=== PATIENT | male | born 1945 | race Caucasian/White ===

== ENCOUNTER 2024-12-23 09:32 | Inpatient (IN) | payer MEDICARE, OTHER ==
[~2024-12-23] VITALS: Ht 170.1 cm; Wt 83.5 kg
[~2024-12-23 09:32] MED LIST: B12 ACTIVE1000 MCG PO; CLOPIDOGREL75 MG PO; DIVALPROEX SOD500 MG PO; FENOFIBRATE160 MG PO; HYDROXYZINE PAM25 M1 PO; LIPITOR10 MG PO; MEMANTINE HCL10 MG PO; MIRALAX17 GM PO; MYRBETRIQ50 M1 PO; OXYBUTYNIN10 MG PO; PANTOPRAZOLE SO40 MG PO; PROSCAR5 M1 PO; RIVASTIGMINE1 EAC2 T; SENNA8.6 MG PO; SINEMET 25-1001 EACH PO; SYMB160 INH; TRICOR145 M1 PO; VAZALORE81 MG PO; VITAMIN D325 MCG PO
[2024-12-23] MEDS ORDERED: TYLENOL325 M2 PO (12:34)
[2024-12-23] MEDS ORDERED: Ipratropium Brom3 ML INH (12:36)
[2024-12-23] MEDS ORDERED: DEPAKOTE SPRIN125 MG PO ×2 (12:53)
[2024-12-23] MEDS ORDERED: LORazepam 1 MG TAB PO PRN (12:55)
[2024-12-23] MEDS ORDERED: hydrOXYzine hydrochloride 50 MG/ML VIAL IM PRN (12:55)
[2024-12-23] MEDS ORDERED: Ziprasidone Mesylate 20 MG VIAL IM PRN (13:00)
[2024-12-23] MEDS ORDERED: DIVALPROEX SODIUM 125 MG CAP PO SCH ×2 (13:00→21:00)
[2024-12-23 17:53] VITALS: BP 114/69
[2024-12-23] MEDS ORDERED: ELIQUIS5 M1 PO (17:53)
[2024-12-23 20:00] VITALS: BP 128/55
[2024-12-23] MEDS ORDERED: Memantine Hydrochloride 10 MG TAB PO SCH (21:00)
[2024-12-24 08:00] VITALS: BP 123/62
[2024-12-24] MEDS ORDERED: RIVASTIGMINE 13.3 MG/24 HR TDM T SCH (09:00)
[2024-12-24] MEDS ORDERED: ACETAMINOPHEN 325 MG TAB PO PRN (16:00)
[2024-12-24] MEDS ORDERED: Albuterol Sulf/Ipratropium 3 ML VIAL NEB PRN (16:00)
[2024-12-24] MEDS ORDERED: BUDESONIDE 0.5 MG AMP NEB SCH (16:05)
[2024-12-24] MEDS ORDERED: APIXABAN 5 MG TAB PO SCH (18:00)
[2024-12-24 20:00] VITALS: BP 114/62
[2024-12-24] MEDS ORDERED: Albuterol Sulfate 2.5 MG/3 ML VIAL NEB SCH (21:00)
[2024-12-24] MEDS ORDERED: Sennosides A and B 8.6 MG TAB PO SCH (21:00)
[2024-12-24] MEDS ORDERED: Carbidopa/Levodopa 25/100MG 1 TAB TAB PO SCH (21:00)
[2024-12-24] MEDS ORDERED: FENOFIBRATE 145 MG TAB PO SCH (22:00)
[2024-12-25 08:00] VITALS: BP 139/73
[2024-12-25] MEDS ORDERED: Clopidogrel Hydrogen Sulfate 75 MG TAB PO SCH (09:00)
[2024-12-25] MEDS ORDERED: DIVALPROEX SODIUM 125 MG CAP PO SCH (09:00)
[2024-12-25] MEDS ORDERED: ATORVASTATIN CALCIUM 10 MG TAB PO SCH (09:00)
[2024-12-25] MEDS ORDERED: Vitamin D 1,000 IU TAB (25 MCG) PO SCH (09:00)
[2024-12-25] MEDS ORDERED: FINASTERIDE 5 MG TAB PO SCH (09:00)
[2024-12-25] MEDS ORDERED: Pantoprazole Sodium 40 MG TAB PO SCH (10:00)
[2024-12-25] MEDS ORDERED: MIRABEGRON 50 MG PO SCH (10:00)
[2024-12-25 20:00] VITALS: BP 141/90
[2024-12-26 07:13] LABS: BASO # 0.1 10*3/uL (0.0-0.1); BASO % 0.9 % (0.0-1.0); EOS # 0.6 10*3/uL (0.0-0.4); EOS % 8.4 % (1.0-4.0); HEMATOCRIT 43.8 % (42.0-52.0); MEAN CELL VOLUME 101.6 fl (80.0-94.0); MEAN CORPUSCULAR HGB 32.7 pg (27.0-31.0); MEAN CORPUSCULAR HGB CONC 32.2 g/dl (33.0-37.0); MEAN PLATELET VOLUME 11.7 fl (9.6-12.3); MONO # 0.9 10*3/uL (0.1-1.0); MONO % 13.4 % (3.0-9.0); NEUT # 4.2 10*3/uL (2.3-7.9); NEUT % 59.5 % (47.0-73.0); PLATELET COUNT AUTOMATED 202 10*3/uL (130-400); RED BLOOD COUNT 4.31 10*6/uL (4.50-5.90); RED CELL DISTRI WIDTH 13.2 % (0-14.5)
[2024-12-26 08:00] VITALS: BP 91/69
[2024-12-26 08:07] LABS: ALKALINE PHOSPHATASE 47 U/L (46-116); BUN 30 mg/dl (9-23); CHLORIDE 100 mmol/L (98-107); POTASSIUM 4.5 mmol/L (3.4-5.1); SGPT/ALT 17 U/L (5-49); TOTAL PROTEIN 6.4 gm/dL (6.0-8.0)
[2024-12-26 20:00] VITALS: BP 133/57
[2024-12-27 08:00] VITALS: BP 95/60
[2024-12-27] MEDS ORDERED: Albuterol Sulfate 2.5 MG/3 ML VIAL NEB PRN (10:15)
[2024-12-27 20:00] VITALS: BP 99/82
[2024-12-28 08:14] VITALS: BP 141/87
[2024-12-28] MEDS ORDERED: QUEtiapine FUMARATE 25 MG TAB PO SCH (12:40)
[2024-12-28 20:00] VITALS: BP 124/69
[2024-12-29 08:19] VITALS: BP 113/71
[2024-12-29 10:18] VITALS: BP 107/52
[2024-12-29 10:19] VITALS: BP 96/57; BP 96/61
[2024-12-29] MEDS ORDERED: QUETIAPINE FUMA25 MG PO (18:22)
[2024-12-29] MEDS ORDERED: MEMANTINE HCL10 MG PO (18:22)
[2024-12-29] MEDS ORDERED: RIVASTIGMINE1 EAC2 T (18:22)
[2024-12-29] MEDS ORDERED: DIVALPROEX SOD125 M1 PO (18:22)
[2024-12-29] MEDS ORDERED: Vitamin D (1,000 UNI PO (18:24)
[2024-12-29 20:00] VITALS: BP 131/66
[2024-12-30 08:00] VITALS: BP 140/78
[2024-12-30] MEDS ORDERED: CLOPIDOGREL75 MG PO (09:29)
== END 2024-12-30 17:53 | disposition home or self-care (01) | DRG 883 ==
LOC: 3N 09:32
PROVIDERS: Internal Medicine; ADMIT Psychiatry & Neurology Psychiatry; ATTEND Psychiatry & Neurology Psychiatry
PROC: GZHZZZZ Group Psychotherapy (ICD-10-PCS; principal; 2024-12-24)
PROC: GZ56ZZZ Individual Psychotherapy, Supportive (ICD-10-PCS; 2024-12-24)
DX: F63.81 Intermittent explosive disorder (principal); F02.811 Dementia in other diseases classified elsewhere, unspecified severity, with agitation; F01.511 Vascular dementia, unspecified severity, with agitation; I82.409 Acute embolism and thrombosis of unspecified deep veins of unspecified lower extremity; I73.9 Peripheral vascular disease, unspecified; I25.10 Atherosclerotic heart disease of native coronary artery without angina pectoris; K21.9 Gastro-esophageal reflux disease without esophagitis; G20.A1 Parkinson's disease without dyskinesia, without mention of fluctuations; J44.9 Chronic obstructive pulmonary disease, unspecified; I10 Essential (primary) hypertension; Z86.73 Personal history of transient ischemic attack (TIA), and cerebral infarction without residual deficits; Z85.46 Personal history of malignant neoplasm of prostate; Z88.2 Allergy status to sulfonamides; Z79.899 Other long term (current) drug therapy; Z79.01 Long term (current) use of anticoagulants; Z79.2 Long term (current) use of antibiotics; Z86.718 Personal history of other venous thrombosis and embolism; Z82.5 Family history of asthma and other chronic lower respiratory diseases; Z82.49 Family history of ischemic heart disease and other diseases of the circulatory system

== ENCOUNTER 2025-02-08 13:10 | Inpatient (IN) | payer MEDICARE, OTHER ==
[~2025-02-08] VITALS: Ht 170.1 cm; Wt 86.2 kg
[~2025-02-08 13:10] MED LIST changes: +DEPAKOTE SPRIN125 MG PO; +DIVALPROEX SOD125 M1 PO; +ELIQUIS5 M1 PO; +Ipratropium Brom3 ML INH; +QUETIAPINE FUMA25 MG PO; +TYLENOL325 M2 PO; +Vitamin D (1,000 UNI PO
[2025-02-08] MEDS ORDERED: ST. JOSEPH ASPI81 MG PO (14:09)
[2025-02-08] MEDS ORDERED: FUROSEMIDE20 M1 PO (14:12)
[2025-02-08] MEDS ORDERED: B-12500 MC1 PO (14:12)
[2025-02-08] MEDS ORDERED: MYRBETRIQ50 M1 PO (14:13)
[2025-02-08] MEDS ORDERED: Vit. B650 MG PO (14:14)
[2025-02-08] MEDS ORDERED: hydrOXYzine pamoate 25 MG CAP PO PRN (14:25)
[2025-02-08] MEDS ORDERED: hydrOXYzine hydrochloride 50 MG/ML VIAL IM PRN (14:25)
[2025-02-08] MEDS ORDERED: LORazepam 1 MG TAB PO PRN (14:25)
[2025-02-08] MEDS ORDERED: Ziprasidone Mesylate 20 MG VIAL IM PRN (14:30)
[2025-02-08] MEDS ORDERED: MG-AL HYDROXIDE/SIMETICONE 30 ML UDC PO PRN (19:50)
[2025-02-08] MEDS ORDERED: ACETAMINOPHEN 325 MG TAB PO PRN (19:50)
[2025-02-08] MEDS ORDERED: Magnesium Hydroxide 30 ML UDC PO PRN (19:50)
[2025-02-08 20:00] VITALS: BP 156/68
[2025-02-08] MEDS ORDERED: Menthol/Zinc Oxide 4 GM THIN T PRN (20:05)
[2025-02-08] MEDS ORDERED: QUEtiapine FUMARATE 25 MG TAB PO SCH (21:00)
[2025-02-08] MEDS ORDERED: Memantine Hydrochloride 10 MG TAB PO SCH (21:00)
[2025-02-08] MEDS ORDERED: DIVALPROEX (DR) 500 MG TAB PO SCH (21:00)
[2025-02-08] MEDS ORDERED: FENOFIBRATE 145 MG TAB PO SCH (22:00)
[2025-02-09 07:10] LABS: BASO # 0.1 10*3/uL (0.0-0.1); BASO % 1.2 % (0.0-1.0); EOS # 0.4 10*3/uL (0.0-0.4); EOS % 7.1 % (1.0-4.0); HEMATOCRIT 50.3 % (42.0-52.0); MEAN CELL VOLUME 100.2 fl (80.0-94.0); MEAN CORPUSCULAR HGB 32.1 pg (27.0-31.0); MEAN PLATELET VOLUME 12.4 fl (9.6-12.3); MONO # 0.7 10*3/uL (0.1-1.0); NEUT # 3.2 10*3/uL (2.3-7.9); NEUT % 54.7 % (47.0-73.0); PLATELET COUNT AUTOMATED 215 10*3/uL (130-400); RED BLOOD COUNT 5.02 10*6/uL (4.50-5.90); RED CELL DISTRI WIDTH 12.9 % (0-14.5); WHITE BLOOD COUNT 5.9 10*3/uL (4.8-10.8)
[2025-02-09 07:52] LABS: POTASSIUM 3.4 mmol/L (3.4-5.1); VALPROIC ACID (DEPAKENE) 41.5 ug/ml (50-100)
[2025-02-09 08:32] VITALS: BP 142/84
[2025-02-09] MEDS ORDERED: PYRIDOXINE 50 MG TAB PO SCH (09:00)
[2025-02-09] MEDS ORDERED: ATORVASTATIN CALCIUM 10 MG TAB PO SCH (09:00)
[2025-02-09] MEDS ORDERED: APIXABAN 5 MG TAB PO SCH (09:00)
[2025-02-09] MEDS ORDERED: Clopidogrel Hydrogen Sulfate 75 MG TAB PO SCH (09:00)
[2025-02-09] MEDS ORDERED: RIVASTIGMINE 13.3 MG/24 HR TDM T SCH (09:00)
[2025-02-09] MEDS ORDERED: ASPIRIN, CHEWABLE 81 MG TAB PO SCH (09:00)
[2025-02-09] MEDS ORDERED: Vitamin D 1,000 IU TAB (25 MCG) PO SCH ×2 (09:00)
[2025-02-09] MEDS ORDERED: FINASTERIDE 5 MG TAB PO SCH (09:00)
[2025-02-09] MEDS ORDERED: CYANOCOBALAMIN 500 MCG TAB PO SCH (09:00)
[2025-02-09] MEDS ORDERED: FUROSEMIDE 20 MG TAB PO SCH (09:00)
[2025-02-09 20:00] VITALS: BP 118/68
[2025-02-09] MEDS ORDERED: QUEtiapine FUMARATE 50 MG TAB PO SCH (21:00)
[2025-02-10 08:00] VITALS: BP 133/75
[2025-02-10 20:00] VITALS: BP 113/67
[2025-02-11 08:00] VITALS: BP 108/60
[2025-02-11] MEDS ORDERED: FLUOXETINE HYDROCHLORIDE PO SCH (09:25)
[2025-02-11 20:00] VITALS: BP 135/82
[2025-02-12 08:18] VITALS: BP 131/93
[2025-02-12] MEDS ORDERED: AQUAPHOR OINTMENT Base 50 GM TUBE T SCH (19:00)
[2025-02-12 20:00] VITALS: BP 117/60
[2025-02-13 08:00] VITALS: BP 134/80
[2025-02-13] MEDS ORDERED: FLUoxetine Hydrochloride 20 MG CAP PO SCH (09:00)
[2025-02-13 20:00] VITALS: BP 120/70
[2025-02-13] MEDS ORDERED: QUEtiapine FUMARATE 25 MG TAB PO SCH (21:00)
[2025-02-14 08:00] VITALS: BP 121/70
[2025-02-14 20:00] VITALS: BP 110/60
[2025-02-15 06:36] LABS: BASO # 0.1 10*3/uL (0.0-0.1); BASO % 0.8 % (0.0-1.0); EOS # 0.4 10*3/uL (0.0-0.4); HEMATOCRIT 50.8 % (42.0-52.0); MEAN CELL VOLUME 101.6 fl (80.0-94.0); MEAN CORPUSCULAR HGB 31.4 pg (27.0-31.0); MEAN CORPUSCULAR HGB CONC 30.9 g/dl (33.0-37.0); MEAN PLATELET VOLUME 12.4 fl (9.6-12.3); MONO # 0.8 10*3/uL (0.1-1.0); MONO % 13.4 % (3.0-9.0); NEUT # 2.7 10*3/uL (2.3-7.9); NEUT % 45.1 % (47.0-73.0); PLATELET COUNT AUTOMATED 223 10*3/uL (130-400); RED CELL DISTRI WIDTH 12.9 % (0-14.5)
[2025-02-15 07:03] LABS: TOTAL PROTEIN 6.7 gm/dL (6.0-8.0)
[2025-02-15 07:47] VITALS: BP 117/85
[2025-02-15 20:00] VITALS: BP 120/80
[2025-02-16 08:00] VITALS: BP 132/91
[2025-02-16 20:00] VITALS: BP 103/58
[2025-02-17 08:00] VITALS: BP 126/75
[2025-02-17 20:00] VITALS: BP 116/55
[2025-02-18 07:02] LABS: BASO # 0.1 10*3/uL (0.0-0.1); EOS # 0.4 10*3/uL (0.0-0.4); EOS % 6.8 % (1.0-4.0); HEMATOCRIT 48.5 % (42.0-52.0); MEAN CORPUSCULAR HGB 32.1 pg (27.0-31.0); MEAN CORPUSCULAR HGB CONC 31.8 g/dl (33.0-37.0); MEAN PLATELET VOLUME 11.9 fl (9.6-12.3); MONO # 0.7 10*3/uL (0.1-1.0); MONO % 11.1 % (3.0-9.0); NEUT # 3.1 10*3/uL (2.3-7.9); NEUT % 50.7 % (47.0-73.0); PLATELET COUNT AUTOMATED 181 10*3/uL (130-400); WHITE BLOOD COUNT 6.1 10*3/uL (4.8-10.8)
[2025-02-18 07:26] LABS: ALKALINE PHOSPHATASE 46 U/L (46-116); BUN 27 mg/dl (9-23); CHLORIDE 102 mmol/L (98-107); SGPT/ALT 23 U/L (5-49); TOTAL PROTEIN 6.2 gm/dL (6.0-8.0); VALPROIC ACID (DEPAKENE) 49.5 ug/ml (50-100)
[2025-02-18 08:00] VITALS: BP 125/71
[2025-02-18 20:00] VITALS: BP 132/65
[2025-02-19 07:56] VITALS: BP 121/68
[2025-02-19 20:00] VITALS: BP 108/63
[2025-02-20 07:58] VITALS: BP 123/80
[2025-02-20] MEDS ORDERED: QUETIAPINE FUMA25 MG PO (08:53)
[2025-02-20] MEDS ORDERED: MEMANTINE HCL10 MG PO (08:53)
[2025-02-20] MEDS ORDERED: DIVALPROEX SOD500 MG PO (08:53)
[2025-02-20] MEDS ORDERED: RIVASTIGMINE1 EAC2 T (08:53)
== END 2025-02-20 13:50 | DRG 883 ==
LOC: 3N 13:10
PROVIDERS: Counselor Professional; ADMIT Psychiatry & Neurology Psychiatry; ATTEND Psychiatry & Neurology Psychiatry
PROC: GZHZZZZ Group Psychotherapy (ICD-10-PCS; principal; 2025-02-10)
PROC: GZ51ZZZ Individual Psychotherapy, Behavioral (ICD-10-PCS; 2025-02-10)
DX: F63.81 Intermittent explosive disorder (principal); F02.B11 Dementia in other diseases classified elsewhere, moderate, with agitation; E46 Unspecified protein-calorie malnutrition; I82.502 Chronic embolism and thrombosis of unspecified deep veins of left lower extremity; G30.9 Alzheimer's disease, unspecified; K21.9 Gastro-esophageal reflux disease without esophagitis; G20.A1 Parkinson's disease without dyskinesia, without mention of fluctuations; I25.10 Atherosclerotic heart disease of native coronary artery without angina pectoris; I73.9 Peripheral vascular disease, unspecified; F01.50 Vascular dementia, unspecified severity, without behavioral disturbance, psychotic disturbance, mood disturbance, and anxiety; L97.529 Non-pressure chronic ulcer of other part of left foot with unspecified severity; Z86.73 Personal history of transient ischemic attack (TIA), and cerebral infarction without residual deficits; Z79.01 Long term (current) use of anticoagulants; Z88.2 Allergy status to sulfonamides; Z85.46 Personal history of malignant neoplasm of prostate; Z68.29 Body mass index [BMI] 29.0-29.9, adult